=== PATIENT | female | born 1950 | race Caucasian/White ===

== ENCOUNTER 2021-02-16 23:09 | Emergency (ER) | payer MEDICAID, MEDICARE ==
[~2021-02-16] VITALS: Ht 152.4 cm; Wt 61.0 kg
[~2021-02-16 23:09] MED LIST: ASPI-1406 PO; LEVO125T8 MT; METR-167 PO
[2021-02-17 00:51] LABS: BASOPHILS % 0.7 % (0.0-2.0); EOSINOPHILS % 2.4 % (0.0-5.0); HEMATOCRIT. 30.9 % (36.0-48.0); HEMOGLOBIN. 10.8 g/dL (12.0-16.0); LYMPHOCYTES % 23.4 % (20.0-50.0); MEAN CORPUSCULAR HEMOGLOBIN 32.2 pg (28.0-32.0); MEAN CORPUSCULAR VOLUME 91.8 fL (81.0-99.0); MEAN PLATELET VOLUME 7.5 fl (7.4-10.4); MONOCYTES % 6.2 % (2.0-8.0); NEUTROPHILS % 67.3 % (40.0-76.0); PLATELET 379 x1000/uL (130-400); RED BLOOD CELL COUNT 3.36 mill/uL (4.2-5.4)
[2021-02-17 00:54] LABS: CHLORIDE 106 mEq/L (98-107)
[2021-02-17 00:58] LABS: ETHANOL BLOOD 205 mg/dL
[2021-02-17 01:10] LABS: CLARITY URINE CLEAR (CLEAR); COLOR URINE YELLOW (YELLOW); KETONES URINE NEGATIVE (NEGATIVE); LEUKOCYTE ESTERASE URINE 1+ (NEGATIVE); NITRITE URINE NEGATIVE (NEGATIVE); OCCULT BLOOD URINE NEGATIVE (NEGATIVE); PH URINE 5.5 (4.5-8.0); PROTEIN URINE NEGATIVE (NEGATIVE); SPECIFIC GRAVITY URINE 1.005 (1.005-1.030); UROBILINOGEN URINE 0.2 E.U./dL (0.2-1.0)
[2021-02-17 01:31] LABS: METHADONE URINE SCREEN NEGATIVE (NEGATIVE); OPIATES URINE SCREEN NEGATIVE (NEGATIVE)
[2021-02-17 01:32] LABS: *AMPHETAMINES SCREEN URINE NEGATIVE (NEGATIVE); *BARBITURATES SCREEN URINE NEGATIVE (NEGATIVE); *BENZODIAZEPINES SCREEN URINE NEGATIVE (NEGATIVE); *COCAINE SCREEN URINE NEGATIVE (NEGATIVE); CANNABINOID URINE SCREEN NEGATIVE (NEGATIVE); PHENCYCLIDINE URINE SCREEN NEGATIVE (NEGATIVE)
[2021-02-17 04:00] VITALS: BP 131/71
== END 2021-02-17 04:23 | disposition home or self-care (01) ==
LOC: ER 23:53
DX: F10.129 Alcohol abuse with intoxication, unspecified (principal); Y90.7 Blood alcohol level of 200-239 mg/100 ml; R51.9 Headache, unspecified; M25.532 Pain in left wrist; E03.9 Hypothyroidism, unspecified; E78.00 Pure hypercholesterolemia, unspecified; W01.0XXA Fall on same level from slipping, tripping and stumbling without subsequent striking against object, initial encounter; Y93.89 Activity, other specified; Y92.89 Other specified places as the place of occurrence of the external cause; Y99.9 Unspecified external cause status; Z79.82 Long term (current) use of aspirin
CPT/HCPCS: 36415; 70486; 71045; 72170; 73110; 80053; 80305; 80320; 81003; 82962; 84484; 85025; 99285; G0480

== ENCOUNTER 2021-03-23 10:36 | Emergency (ER) | payer MEDICAID, MEDICARE ==
[~2021-03-23] VITALS: Ht 152.4 cm; Wt 63.0 kg
[2021-03-23] MEDS ORDERED: ACETAMINOPHEN WITH CODEINE 300/30MG TABLET PO STA (11:48)
[2021-03-23] MEDS ORDERED: IBUP-2030 PO (13:08)
[2021-03-23] MEDS ORDERED: TRAM50TA3 MT (13:08)
[2021-03-23 13:30] VITALS: BP 127/68
== END 2021-03-23 13:31 | disposition home or self-care (01) ==
LOC: ER 10:36
DX: S52.502A Unspecified fracture of the lower end of left radius, initial encounter for closed fracture (principal); Z94.9 Transplanted organ and tissue status, unspecified; Z98.890 Other specified postprocedural states; Z79.82 Long term (current) use of aspirin; Z86.39 Personal history of other endocrine, nutritional and metabolic disease; X58.XXXA Exposure to other specified factors, initial encounter; Y93.89 Activity, other specified; Y92.89 Other specified places as the place of occurrence of the external cause; Y99.8 Other external cause status
CPT/HCPCS: 73110; 99283